=== PATIENT | male | born 1985 ===

== ENCOUNTER 2020-07-24 13:58 | Outpatient (CLI) | payer OTHER, SELFPAY | END 2020-07-24 13:59 | disposition home or self-care (01) | LOC: ANHCOVIDVC 13:58 | PROVIDERS: PCP Nurse Practitioner | DX: Z23 Encounter for immunization (principal) | CPT/HCPCS: 0001A; 91300 ==

== ENCOUNTER 2020-08-14 13:52 | Outpatient (CLI) | payer OTHER, SELFPAY | END 2020-08-14 13:53 | disposition home or self-care (01) | LOC: ANHCOVIDVC 13:52 | PROVIDERS: PCP Nurse Practitioner | DX: Z23 Encounter for immunization (principal) | CPT/HCPCS: 0002A; 91300 ==